=== PATIENT | female | born 1945 | race Caucasian/White ===

== ENCOUNTER 2016-12-25 00:23 | Observation (INO) | payer OTHER ==
[~2016-12-25] VITALS: Ht 162.6 cm; Wt 71.7 kg
[2016-12-25 02:14] LABS: HEMOGLOBIN 11.4 gm/dl (12.3-15.3); RED BLOOD COUNT 4.02 M/UL (4.00-5.10); WHITE BLOOD COUNT 6.9 K/UL (4.5-11.0)
[2016-12-25 02:48] LABS: BUN/CREATININE RATIO 32 (0-10)
[2016-12-25] MEDS ORDERED: TOPROL XL100 MG PO (12:43)
[2016-12-25] MEDS ORDERED: FLECAINIDE ACE100 MG PO (12:44)
[2016-12-25] MEDS ORDERED: ASPIRIN EC81 MG PO (12:57)
[2016-12-25] MEDS ORDERED: XARELTO20 MG PO (13:02)
[2016-12-25] MEDS ORDERED: PROPAFENONE HC325 MG PO (13:03)
[2016-12-25] MEDS ORDERED: NEXIUM20 MG PO (13:03)
[2016-12-25] MEDS ORDERED: LISINOPRIL10 MG PO (13:09)
[2016-12-25] MEDS ORDERED: ZOCOR40 MG PO (21:54)
== END 2016-12-25 23:03 | disposition home or self-care (01) ==
LOC: ER1 00:23 → ZEROF 05:36 → MED SURG 4 15:05
PROVIDERS: Physician Assistant; ADMIT Internal Medicine
DX: I48.91 Unspecified atrial fibrillation (principal); E11.65 Type 2 diabetes mellitus with hyperglycemia; I10 Essential (primary) hypertension; K21.9 Gastro-esophageal reflux disease without esophagitis; K44.9 Diaphragmatic hernia without obstruction or gangrene; D64.9 Anemia, unspecified; Z88.0 Allergy status to penicillin; Z88.1 Allergy status to other antibiotic agents; Z88.8 Allergy status to other drugs, medicaments and biological substances; Z79.82 Long term (current) use of aspirin; Z79.01 Long term (current) use of anticoagulants; Z79.899 Other long term (current) drug therapy
CPT/HCPCS: ECHO; 36415; 71010; 80053; 82550; 82553; 82962; 83036; 83735; 83874; 83880; 84100; 84439; 84443; 84484; 85025; 93005; 93306; 96365; 96366; 99285; G0378